=== PATIENT | female | born 1960 | race Two or more races ===

== ENCOUNTER 2024-02-18 19:57 | Inpatient (IN) | payer MEDICARE, MEDICAID, SELFPAY ==
[2024-02-18 19:58] VITALS: BMI 27.4
[2024-02-18 20:34] VITALS: BP 120/77; PULSE 86; RESP 20; TEMP 36.7; O2SAT 96
--- NOTE | 2024-02-18 20:49 | XR_ITS ---
Examination: PA lateral chest 2 views Technique: Upright PA lateral chest 2 views Exam date and time: 09/18/2023 2107 hrs. Indications: Sepsis today. Findings: Early pneumonia left base Normal heart size No pulmonary edema Intact osseous structures with moderate osteopenia Impression: Early pneumonia left base
--- NOTE | 2024-02-18 20:50 | PD.EDRME ---
Rapid Medical Screening Exam RME Arrival date/time: 02/18/24 19:57 63-year-old female presents emergency department reporting was told to return to the ER due to positive blood cultures. Patient denies any concerns at this time or complaints. Chief Complaint: General Adult/Misc Complain Time Seen by Provider: 02/18/24 20:39 Vital signs: Vital Signs Temperature 98.1 F 02/18/24 20:34 Pulse Rate 86 02/18/24 20:34 Respiratory Rate 20 02/18/24 20:34 Blood Pressure 120/77 02/18/24 20:34 Pulse Oximetry (%) 96 02/18/24 20:34 Oxygen Delivery Method Room Air 02/18/24 20:34 Vital signs reviewed by provider: Yes
[2024-02-18 21:23] LABS: Collection Type, Urine Clean Catch
[2024-02-18 21:33] LABS: Lactate (Lactic Acid) 1.1 mMol/L (0.4-2.0)
[2024-02-18 21:52] LABS: B-Type Natriuretic Peptide < 20 pg/mL (0-100)
[2024-02-18 22:04] LABS: Alanine Aminotransferase 10 U/L (10-49); Albumin, Serum 4.6 gm/dL (3.4-4.8); Albumin/Globulin Ratio 1.4 (1.2-2.2); Alkaline Phosphatase 115 U/L (46-116); Anion Gap 6 (7-16); Aspartate Amino Transferase < 10 U/L (0-34); BUN/Creatinine Ratio 25 Ratio (12-20); Bilirubin,Total 0.5 mg/dL (0.3-1.2); Blood Urea Nitrogen 33 mg/dL (9-23); Calcium 10.6 mg/dL (8.3-10.6); Calcium (Corrected) 10.6 mg/dL (8.5-10.1); Carbon Dioxide 26.6 mMol/L (20.0-31.0); Chloride 101 mMol/L (98-107); Creatinine (Component) 1.3 mg/dL (0.6-1.3); Estimated Creatinine Clearance 42.1 mL/min (>60); Globulin 3.4 gm/dL (2.3-3.5); Glucose 111 mg/dL (74-106); Lipase 92 U/L (12-53); Osmolality,Calculated 276 (275-295); Phosphorous 3.8 mg/dL (2.4-5.1); Potassium 4.1 mMol/L (3.4-5.1); Procalcitonin 1.28 ng/ml (0.0-0.49); Sodium 134 mMol/L (136-145); Troponin I < 0.002 ng/mL (0.0-0.045); eGFR 46 See Note
[2024-02-18 22:13] LABS: Basophils % (Auto) 1 % (0-2.5); Eosinophils # (Auto) 0.3 Thou/mm3 (0.0-0.5); Eosinophils % (Auto) 4 % (0-10); Hematocrit 37.7 % (36.0-46.0); Hemoglobin 12.6 g/dL (12.0-16.0); Immature Granulocytes % (Auto) 1 % (0-0); Lymphocytes # (Auto) 2.7 Thou/mm3 (1.0-4.8); Lymphocytes % (Auto) 31 % (10-50); Mean Corpuscular HGB Conc 33.4 g/dl (31.0-37.0); Mean Corpuscular Hemoglobin 29.6 pg (25.0-35.0); Mean Corpuscular Volume 89 fL (80-100); Monocytes # (Auto) 0.6 Thou/mm3 (0.0-0.8); Monocytes % (Auto) 7 % (0-12); Neutrophils # (Auto) 5.1 Thou/mm3 (1.8-7.7); Neutrophils % (Auto) 58 % (37-80); Nucleated Red Blood Cell % 0 /100 WBC (0); Platelet Count 271 Thou/mm3 (140-440); RDW Standard Deviation 40.1 fL (36.4-46.3); Red Blood Count 4.26 Miln/mm3 (4.00-5.20); White Blood Count 8.8 Thou/mm3 (3.6-11.0)
[2024-02-18 22:16] LABS: Bilirubin,Urine Negative (Negative); Blood,Urine 2+ (Negative); Clarity,Urine Clear (Clear/Hazy); Color,Urine Lt-Yellow (Lt Yel-Yel); Glucose, Urine Negative (Negative); Ketones,Urine Negative (Negative); Leukocyte Esterase,Urine Positive (Negative); Nitrite,Urine Negative (Negative); PH,Urine 5.5 (5.0-7.0); Protein,Urine Negative (Neg - Trace); RBC,Urine 12 /hpf (0-3); Specific Gravity,Urine 1.017 (1.001-1.035); Squamous Epithelial Cell,Urine < 1 /hpf (0-5); Urobilinogen,Urine Negative mg/dL (0.0-1.0); WBC,Urine 12 /hpf (0-5)
[2024-02-18 22:20] LABS: Prothrombin Time 10.9 Seconds (9.0-12.2)
--- NOTE | 2024-02-18 22:40 | EDNOTE_ITS ---
<Statement entered by Gloria Laurent MD - 02/19/24 19:40> As co-signing physician, I was present and available for consult prn. I concur with the plan and care as documented by the midlevel provider. ED General RME/HPI General Chief complaint: General Adult/Misc Complain Stated complaint: POS BLOOD CULTURE GRAM NEGATIVE RODS Time Seen by Provider: 02/18/24 20:39 Arrival date/time: 02/18/24 19:57 RME / HPI RME / HPI narrative: 63-year-old female patient with significant history of hypertension diabetes mellitus, was advised to return to emergency room for positive blood culture gram-negative negative rods that was done 2 days ago. Patient came here 2 days ago and was diagnosed with UTI during that time patient was given ceftriaxone IV, and was sent home on Keflex. Currently patient is denying any concerns or complaints at this time. No fever no vomiting. Related Data Home Medications ?Medication ?Instructions ?Recorded ?Confirmed Metformin Hcl 500 mg PO ##0 11/16/08 lisinopril 10 mg tablet 10 mg PO ##0 11/16/08 Previous Rx's ?Medication ?Instructions ?Recorded hydrocodone 5 mg-acetaminophen 325 1 tab PO BID PRN pain #14 tabs 11/06/22 mg tablet naproxen 500 mg tablet 500 mg PO BID PRN pain #30 tabs 11/06/22 cephalexin 500 mg capsule 1,000 mg (2 x 500 mg) PO BID 7 02/16/24 days #28 caps Allergies Allergy/AdvReac Type Severity Reaction Status Date / Time No Known Allergies Allergy Mild Uncoded 02/11/09 14:32 Review of Systems Review of Systems Narrative Review of Systems: Review of system reviewed and within normal limits except mentioned in HPI ED Exam Narrative Physical exam: VITAL SIGNS: Reviewed. GENERAL APPEARANCE: Alert and interactive, follows commands, no acute distress, HEAD AND FACE: Non-traumatic. ENT: PERRL, pink conjunctivitis, eyelid no trauma, Mucous membrane moist. NECK: Supple, nontender, no nuchal rigidity. CHEST: No tenderness, no crepitus, no paradoxical movement, no retractions. LUNGS: Clear, well ventilated, symmetric, no rales, no wheezing, no ronchi, no stridor, good breath sounds bilaterally. HEART: Regular rate, regular rhythm, no murmur, no gallops. ABDOMEN: Soft, positive bowel sounds, nondistended, no guarding, nontender, no rebound, no masses, RECTAL: Deferred. GENITAL: Deferred. NEUROLOGICAL: Gross motor function intact sensory function intact, Appropriate for age. MUSCULOSKELETAL: low back nontender, full range of motion. EXTREMITIES: Nontender, full range of motion. SKIN: Color pink, dry, no rash, no lacerations, no abrasions, no contusions. LYMPHATICS: Deferred. Course Quality Measures none Orders Category Date Time Status COVID-19 Screening Questionnaire NOW Care 02/18/24 22:44 Active Decision to Admit X1 Care 02/18/24 22:44 Active XR chest 2V Stat Exams 02/18/24 20:49 Completed B-Type Natriuretic Peptide Stat Lab 02/18/24 21:25 Completed Blood Culture (Lab) Stat Lab 02/18/24 21:30 Received CBC Stat Lab 02/18/24 21:25 Completed Comprehensive Metabolic Panel Stat Lab 02/18/24 21:25 Completed Lactate (Lactic Acid) Stat Lab 02/18/24 21:25 Completed Lipase Stat Lab 02/18/24 21:25 Completed Magnesium Stat Lab 02/18/24 21:25 Completed Partial Thromboplastin Time Stat Lab 02/18/24 21:25 Completed Phosphorous Stat Lab 02/18/24 21:25 Completed Procalcitonin Stat Lab 02/18/24 21:25 Completed Prothrombin Time with INR Stat Lab 02/18/24 21:25 Completed Troponin I Stat Lab 02/18/24 21:25 Completed Urinalysis Stat Lab 02/18/24 21:14 Completed Urine Culture Stat Lab 02/18/24 21:14 Received Piper/Tazo 3.375 gm [Zosyn] Med 02/18/24 22:43 Active 3.375 gm in 50 ml IV X1 Vital Signs Vital signs: Vital Signs Temperature 98.1 F 02/18/24 20:34 Pulse Rate 86 02/18/24 20:34 Respiratory Rate 20 02/18/24 20:34 Blood Pressure 120/77 02/18/24 20:34 Pulse Oximetry (%) 96 02/18/24 20:34 Oxygen Delivery Method Room Air 02/18/24 20:34 [facility] Patient data External records reviewed:: None Clinical information provided by:: none Social determinants that could affect healthcare access:: none Patient has the following chronic illnesses:: Diabetes mellitus hypertension How is presenting disease/condition affected by chronic disease/condition?: e xacerbated by Evaluation data The following diagnostics were reviewed and interpreted by me:: radiology exam(s) Lab and/or radiology exams considered but not ordered:: None Interpretation Summary: Patient's workup today all came back unremarkable. Except for UTI UTI in the urinalysis. Chest x-ray showed early pneumonia. Medications Medications considered but not ordered:: None Medication administrations:: Medication Administration History Piperacillin/Tazobactam/Dextrose (Zosyn) 3.375 gm in 50 mls @ 100 mls/hr IV X1 ONE Stop: 02/18/24 23:12 Zosyn IV Consultations Consultation(s) initiated? (list below): No Diagnosis Differential Diagnosis ED Complaint MDM: Positive blood culture, UTI, pneumonia Most likely diagnosis given after review of the tests above:: Gram-negative rods in blood culture, UTI pneumonia Admission Indicated Admission indicated?: indicated Explain why admission is indicated or not indicated:: Patient is to be admitted for further management. Admission Request Was there a request for admission?: Yes Admission Attestation Admission request attestation: Discussed case with [Velazquez] from Hospitalist service regarding admission. Discussed patients ED course, exam findings, labs, and radiology results. The Hospitalist [agrees,] to accept the patient for admission. Disposition Plan Disposition Plan: Admit Medical Decision Making Differential Diagnosis Differential Diagnosis: Positive blood culture, UTI, pneumonia Lab Data 02/18/24 21:25 02/18/24 21:25 Labs: Lab Results 02/18/24 02/18/24 Range/Units 21:14 21:25 WBC 8.8 (3.6-11.0) Thou/mm3 RBC 4.26 (4.00-5.20) Miln/mm3 Hgb 12.6 (12.0-16.0) g/dL Hct 37.7 (36.0-46.0) % MCV 89 (80-100) fL MCH 29.6 (25.0-35.0) pg MCHC 33.4 (31.0-37.0) g/dl RDW Std Deviation 40.1 (36.4-46.3) fL Plt Count 271 D (140-440) Thou/mm3 Neut % (Auto) 58 (37-80) % Lymph % (Auto) 31 (10-50) % [place] % (Auto) 7 (0-12) % Eos % (Auto) 4 (0-10) % Baso % (Auto) 1 (0-2.5) % Neut # (Auto) 5.1 (1.8-7.7) Thou/mm3 Lymph # (Auto) 2.7 (1.0-4.8) Thou/mm3 [place] # (Auto) 0.6 (0.0-0.8) Thou/mm3 Eos # (Auto) 0.3 (0.0-0.5) Thou/mm3 Baso # (Auto) 0.0 (0.0-0.2) Thou/mm3 Immature Gran # (Auto) 0.10 H (0.00-0.00) Thou/mm3 Absolute Nucleated RBC 0.00 (0.00-0.00) Thou/mm3 Immature Gran % 1 H (0-0) % Nucleated RBC % 0 (0) /100 WBC PT 10.9 (9.0-12.2) Seconds INR 1.0 (0.9-1.3) APTT 32.0 (22.0-36.0) Seconds Sodium 134 L (136-145) mMol/L Potassium 4.1 D (3.4-5.1) mMol/L Chloride 101 (98-107) mMol/L Carbon Dioxide 26.6 (20.0-31.0) mMol/L Anion Gap 6 L (7-16) BUN 33 H (9-23) mg/dL Creatinine 1.3 (0.6-1.3) mg/dL Estim Creat Clear Calc 42.1 L (>60) mL/min eGFR 46 L (60 - ) See Note BUN/Creatinine Ratio 25 H (12-20) Ratio Glucose 111 H D (74-106) mg/dL Calculated Osmolality 276 (275-295) Lactic Acid 1.1 (0.4-2.0) mMol/L Calcium 10.6 (8.3-10.6) mg/dL Corrected Calcium 10.6 H (8.5-10.1) mg/dL Phosphorus 3.8 (2.4-5.1) mg/dL Magnesium 2.0 (1.6-2.6) mg/dL Total Bilirubin 0.5 (0.3-1.2) mg/dL AST < 10 (0-34) U/L ALT 10 (10-49) U/L Alkaline Phosphatase 115 (46-116) U/L Troponin I < 0.002 (0.0-0.045) ng/mL B-Natriuretic Peptide < 20 (0-100) pg/mL Total Protein 8.0 (5.7-8.2) gm/dL Albumin 4.6 (3.4-4.8) gm/dL Globulin 3.4 (2.3-3.5) gm/dL Albumin/Globulin Ratio 1.4 (1.2-2.2) Lipase 92 H D (12-53) U/L Procalcitonin 1.28 H (0.0-0.49) ng/ml Ur Collection Type Clean Catch Urine Color Lt-Yellow (Lt Yel-Yel) Urine Clarity Clear (Clear/Hazy) Urine pH 5.5 (5.0-7.0) Ur Specific [place] 1.017 (1.001-1.035) Urine Protein Negative (Neg - Trace) Urine Glucose (UA) Negative (Negative) Urine Ketones Negative (Negative) Urine Blood 2+ A (Negative) Urine Nitrite Negative (Negative) Urine Bilirubin Negative (Negative) Urine Urobilinogen (Auto) Negative (0.0-1.0) mg/dL Ur Leukocyte Esterase Positive (Negative) Urine RBC 12 H (0-3) /hpf Urine WBC 12 H (0-5) /hpf Ur Squamous Epith Cells < 1 (0-5) /hpf Urine Bacteria None (None) Discharge Plan Plan Patient Disposition: Admit Acute Care w/in Hospital Disposition Comment: Stable Prescriptions/Referrals Prescriptions/Med Rec: No Action lisinopril 10 MG tablet 10 mg PO Qty: 0 Metformin Hcl 500 MG tablet 500 mg PO Qty: 0 naproxen 500 mg tablet 500 mg PO BID PRN (Reason: pain) Qty: 30 0RF hydrocodone-acetaminophen 5-325 mg tablet 1 tab PO BID MDD 2 PRN (Reason: pain) Qty: 14 0RF cephalexin 500 mg capsule 1,000 mg PO BID 7 Days Qty: 28 0RF Referrals: Marquez Higgins MD [Primary Care Provider] - In 1 week Problem List Clinical Impression: UTI (urinary tract infection), Positive blood cultures Patient/Caregiver Discharge Instructions Print Language: Welsh Stand Alone Forms: [employer] Award Info., Patient Portal Info Letter
--- NOTE | 2024-02-18 22:57 | ESHP_ITS ---
Documentation for date of: 02/18/24 HPI - Hospitalist History of Present Illness History of Present Illness: Positive blood culture History of present illness: This is a 63-year-old female with a past medical history of hypertension and diabetes mellitus who presented to the emergency department following a notification of positive blood cultures for gram-negative rods. The patient was evaluated in the ED two days ago (02/15) for complaints of abdominal pain and systemic symptoms including chills and shivering, which began on 02/09. At that visit, she was diagnosed with a urinary tract infection, treated with IV ceftriaxone, and discharged on oral Keflex. The patient denies any current complaints, including fever, vomiting, or abdominal pain. She reports a history of unintended weight loss despite preserved appetite, estimating a significant loss of approximately 60 pounds in recent months. Her family reported that she continues to feel weak. She has a notable family history of cancers but denies knowledge of specific types in her immediate relatives. In the ED, her vital signs were stable (Temp 98.1?F, HR 86 bpm, RR 20 breaths/min, BP 120/77 mmHg). Lab work revealed a WBC of 8.8, hemoglobin of 12.6, platelets of 271, sodium of 134, BUN of 33, glucose of 111, and a procalcitonin level of 1.28 ng/mL. Imaging findings included a chest X-ray showing early left lower lobe pneumonia and a CT scan on 02/15 revealing a 3.6 x 4.2 cm pancreatic head mass concerning for pancreatic carcinoma, as well as right perinephric stranding suggestive of a urinary tract infection The patient was admitted for further workup and management. Past Medical History: * Hypertension * Diabetes mellitus Past Surgical History: * section * Hysterectomy Review of Systems Review of Systems Narrative Review of Systems: A 14 point review of systems was assessed and negative except for that per HPI Past Medical History Past Medical History CARDIAC: Negative Congestive Heart Failure RESPIRATORY: Negative Chronic Obstructive Pulmonary Disease (COPD) GENITOURINARY: Negative Renal Disease ENDOCRINE: Positive Diabetes Mellitus Type 2; Negative Diabetes Mellitus Type 1 Social History SMOKING STATUS: Never smoker Meds Home Medications and Allergies Home Medications ?Medication ?Instructions ?Recorded ?Confirmed ?Type Metformin Hcl 500 mg PO ##0 11/16/08 History lisinopril 10 mg tablet 10 mg PO ##0 11/16/08 History Allergies Allergy/AdvReac Type Severity Reaction Status Date / Time No Known Allergies Allergy Mild Uncoded 02/11/09 14:32 Exam Vital Signs Temp Pulse Resp BP Pulse Ox O2 Del Method 98.1 F 86 20 120/77 96 Room Air 02/18/24 20:34 02/18/24 20:34 02/18/24 20:34 02/18/24 20:34 02/18/24 20:34 02/18/24 20:34 Narrative Constitutional: Female, in no apparent distress. Eyes: Extraocular movements intact. No ptosis. PERRL. Neck: Supple, trachea midline. No thyromegaly. Lungs: Clear and good breath sounds equally. No wheezing. No rhonchi. CV: S1, S2. Regular rate and rhythm. GI: Soft, nontender. No HSM. Musculoskeletal: No cyanosis, clubbing or edema. Neuro: No focal deficit. No sensory deficit. Alert and oriented x3. Psychiatric: No signs of depression and is nonfocal. Skin: Warm and dry. No acute lesions. Results - Hospitalist Labs Diagrams: 02/18/24 21:25 02/18/24 21:25 Labs: Short CBC 02/18/24 Range/Units 21:25 WBC 8.8 (3.6-11.0) Thou/mm3 Hgb 12.6 (12.0-16.0) g/dL Hct 37.7 (36.0-46.0) % Plt Count 271 D (140-440) Thou/mm3 BMP 02/18/24 21:25 Sodium 134 L Potassium 4.1 D Chloride 101 Carbon Dioxide 26.6 BUN 33 H Creatinine 1.3 Glucose 111 H D Calcium 10.6 Cardiac Enzymes 02/18/24 Range/Units 21:25 Troponin I < 0.002 (0.0-0.045) ng/mL Liver Function 02/18/24 Range/Units 21:25 Total Bilirubin 0.5 (0.3-1.2) mg/dL AST < 10 (0-34) U/L ALT 10 (10-49) U/L Alkaline Phosphatase 115 (46-116) U/L Albumin 4.6 (3.4-4.8) gm/dL Urine 02/18/24 Range/Units 21:14 Urine Color Lt-Yellow (Lt Yel-Yel) Urine Clarity Clear (Clear/Hazy) Urine pH 5.5 (5.0-7.0) Ur Specific [place] 1.017 (1.001-1.035) Urine Protein Negative (Neg - Trace) Urine Glucose (UA) Negative (Negative) Assessment & Plan -Hospitalist Patient Synopsis #Positive Blood Culture #Urinary Tract Infection #Pneumonia - Start broad-spectrum IV antibiotics targeting gram-negative organisms while awaiting final culture and sensitivity results - Repeat blood cultures to assess for clearance - Continue monitoring for signs of systemic infection or sepsis #Pancreatic Mass - Order MRI of the abdomen for further characterization of the pancreatic lesion - Assess for tumor markers such as CA 199/CEA/CA 125 Diabetes - ISS - Optimize glycemic control during hospitalization, avoiding hypoglycemia. Hypertension - Continue home meds Unintended Weight Loss - Evaluate for malignancy, malabsorption, or other systemic causes - Consider a nutrition consult for caloric supplementation if intake is inadequate DVT prophylaxis: Lovenox Quality Measures Quality Measures none Advance care planning discussed with:: patient
[2024-02-18] MEDS: SODIUM CHLORIDE 0.9% 1000 ML 1,000 ML 100 ML IV (23:19)
[2024-02-18] MEDS: PIPER/TAZO 3.375 GM 3.375 GM/50 ML BAG IV (23:20)
[2024-02-18 23:30] VITALS: BP 119/79; PULSE 72; RESP 13; TEMP 36.9; O2SAT 99
[2024-02-19] VITALS (7 sets, daily range): BP systolic 112–124; BP diastolic 61–81; PULSE 61–77; RESP 17–18; TEMP 36.1–36.9; O2SAT 94–99; BMI 26.9
--- NOTE | 2024-02-19 | XR_ITS ---
Examination: MRI abdomen with intravenous contrast. MRI abdomen without intravenous contrast. Date and time of exam: February 19, 2024 at 1710 hrs. Indications: Abdominal pain this week, CT abdomen pelvis February 16, 2024 pancreatic head mass 3.6 x 4.2 cm Technique: Multiple axial, sagittal and coronal sections of the abdomen obtained. Transverse images, TR 6020, TE 107. T1 weighted transverse images, TR 582, TE 9.5. T2-weighted sagittal images, TR 4000, TE 105. T2-weighted sagittal images, TR 4000, TE 5. Coronal images, TR 4210, TE 107. Axial and coronal images are obtained post 18 cc intravenous injection, gadolinium. Findings: No focal liver lesions No gallstones No enlargement common hepatic or common bile duct Large complex septated cystic mass pancreatic head, at least 4 x 4.2 cm Postcontrast images demonstrate enhancement of this date and this mass No hydronephrosis Aorta normal size Lower pole 4.5 cm left renal cyst Impression: Complex large septated cystic mass pancreatic head with septal enhancement, differential would include cystic neoplasm of the pancreas
--- NOTE | 2024-02-19 00:02 | PC.NURSE ---
REPORT GIVEN TO PAMELA JAQUEZ AT [facility].
[2024-02-19] MEDS: PIPER/TAZO 3.375 GM 50 ML IV (05:16)
[2024-02-19 06:46] LABS: Basophils # (Auto) 0.1 Thou/mm3 (0.0-0.2); Basophils % (Auto) 1 % (0-2.5); Eosinophils # (Auto) 0.3 Thou/mm3 (0.0-0.5); Eosinophils % (Auto) 4 % (0-10); Hematocrit 33.5 % (36.0-46.0); Hemoglobin 11.3 g/dL (12.0-16.0); Immature Granulocytes % (Auto) 2 % (0-0); Immature Granulocytes Auto 0.17 Thou/mm3 (0.00-0.00); Lymphocytes # (Auto) 2.5 Thou/mm3 (1.0-4.8); Lymphocytes % (Auto) 34 % (10-50); Mean Corpuscular HGB Conc 33.7 g/dl (31.0-37.0); Mean Corpuscular Hemoglobin 29.7 pg (25.0-35.0); Mean Corpuscular Volume 88 fL (80-100); Monocytes # (Auto) 0.4 Thou/mm3 (0.0-0.8); Monocytes % (Auto) 5 % (0-12); Neutrophils # (Auto) 3.8 Thou/mm3 (1.8-7.7); Neutrophils % (Auto) 53 % (37-80); Nucleated Red Blood Cell % 0 /100 WBC (0); Platelet Count 223 Thou/mm3 (140-440); RDW Standard Deviation 39.3 fL (36.4-46.3); Red Blood Count 3.81 Miln/mm3 (4.00-5.20); White Blood Count 7.2 Thou/mm3 (3.6-11.0)
[2024-02-19 07:12] LABS: Anion Gap 1 (7-16); BUN/Creatinine Ratio 25 Ratio (12-20); Blood Urea Nitrogen 30 mg/dL (9-23); Carbon Dioxide 27.7 mMol/L (20.0-31.0); Chloride 106 mMol/L (98-107); Creatinine (Component) 1.2 mg/dL (0.6-1.3); Estimated Creatinine Clearance 45.2 mL/min (>60); Glucose 99 mg/dL (74-106); Osmolality,Calculated 276 (275-295); Potassium 3.7 mMol/L (3.4-5.1); Sodium 135 mMol/L (136-145); eGFR 50 See Note
--- NOTE | 2024-02-19 09:57 | PD.RESPRO ---
Documentation for date of: 02/19/24 Subjective Subjective Interval history: Patient seen and examined at bedside. No acute overnight events. Vitals, labs reviewed. Overall patient has no acute complaints, although she does feel like she has a headache related to poor sleep/positioning. She denies nausea, vomiting, abdominal pain or any respiratory distress. Repeat cultures are pending. Changed antibiotics to rocephin based on previous positive blood cultures (pansensitive E.coli). MRI ordered for pancreatic mass along with tumor markers. Will consult oncology. Exam Vital Signs Temp Pulse Resp BP Pulse Ox O2 Del Method 97.3 F 65 17 114/71 95 Room Air 02/19/24 08:00 02/19/24 08:00 02/19/24 08:00 02/19/24 08:00 02/19/24 08:00 02/19/24 08:00 Narrative Exam Gen: AAOx3, appears ill, pleasant to speak with HEENT: NCAT, PERRLA, EOMI, MMM, no LAD noted CVS: normal S1, S2. RRR. No MRG Resp: CTA B/L. No rhonchi, rales, crackles or wheezing Abd: soft, non-tender, non-distended. BS+ in all 4 quadrants MSK: Good ROM in BUE & BLE. No edema or rash. Neuro: CN II-XII grossly intact. No focal deficits appreciated. Objective Labs 02/21/24 04:38 02/21/24 04:38 Labs: Laboratory Results - last 24 hr 02/18/24 02/18/24 02/19/24 21:14 21:25 05:21 WBC 8.8 7.2 RBC 4.26 3.81 L Hgb 12.6 11.3 L Hct 37.7 33.5 L MCV 89 88 MCH 29.6 29.7 MCHC 33.4 33.7 RDW Std Deviation 40.1 39.3 Plt Count 271 D 223 D Neut % (Auto) 58 53 Lymph % (Auto) 31 34 [place] % (Auto) 7 5 Eos % (Auto) 4 4 Baso % (Auto) 1 1 Neut # (Auto) 5.1 3.8 Lymph # (Auto) 2.7 2.5 [place] # (Auto) 0.6 0.4 Eos # (Auto) 0.3 0.3 Baso # (Auto) 0.0 0.1 Immature Gran # (Auto) 0.10 H 0.17 H Absolute Nucleated RBC 0.00 0.00 Immature Gran % 1 H 2 H Nucleated RBC % 0 0 PT 10.9 INR 1.0 APTT 32.0 Sodium 134 L 135 L Potassium 4.1 D 3.7 Chloride 101 106 Carbon Dioxide 26.6 27.7 Anion Gap 6 L 1 L BUN 33 H 30 H Creatinine 1.3 1.2 Estim Creat Clear Calc 42.1 L 45.2 L eGFR 46 L 50 L BUN/Creatinine Ratio 25 H 25 H Glucose 111 H D 99 Calculated Osmolality 276 276 Lactic Acid 1.1 Calcium 10.6 10.0 Corrected Calcium 10.6 H Phosphorus 3.8 Magnesium 2.0 Total Bilirubin 0.5 AST < 10 ALT 10 Alkaline Phosphatase 115 Troponin I < 0.002 B-Natriuretic Peptide < 20 Total Protein 8.0 Albumin 4.6 Globulin 3.4 Albumin/Globulin Ratio 1.4 Lipase 92 H D Procalcitonin 1.28 H Ur Collection Type Clean Catch Urine Color Lt-Yellow Urine Clarity Clear Urine pH 5.5 Ur Specific [place] 1.017 Urine Protein Negative Urine Glucose (UA) Negative Urine Ketones Negative Urine Blood 2+ A Urine Nitrite Negative Urine Bilirubin Negative Urine Urobilinogen (Auto) Negative Ur Leukocyte Esterase Positive Urine RBC 12 H Urine WBC 12 H Ur Squamous Epith Cells < 1 Urine Bacteria None Quality Measures Quality Measures VTE prophylaxis Advance care planning discussed with:: patient Assessment & Plan Assessment Current Active Medications: Generic Name Dose Route Start Last Admin Trade Name Kitq PRN Reason Stop Dose Admin Acetaminophen 650 mg 02/18/24 22:52 Acetaminophen 325 Mg Tablet PO 03/19/24 22:51 Q6H PRN Fever >101.5 Atorvastatin Calcium 20 mg 02/19/24 21:00 Atorvastatin Calcium 20 Mg Tablet PO 03/20/24 20:59 HS JERE Dextrose 25 ml 02/18/24 22:55 Dextrose 50%-Water Inj 50 Ml Syringe IV 03/19/24 22:54 Q15MIN PRN BG 50-70 responsive npo pt Dextrose 50 ml 02/18/24 22:55 Dextrose 50%-Water Inj 50 Ml Syringe IV 03/19/24 22:54 Q15MIN PRN BG <50 OR BG <70 & pt unresponsive Enoxaparin Sodium 40 mg 02/19/24 09:00 Enoxaparin Sod Inj 40 Mg/0.4 Ml Syringe SC 03/04/24 08:59 QDAY JERE Glucagon 1 mg 02/18/24 22:55 Glucagon Inj 1 Mg Vial IM Q15MIN PRN BG <70, and no IV access Ceftriaxone Sodium 2 gm/ 50 mls @ 100 mls/hr 02/19/24 09:30 Sodium Chloride IV 02/26/24 09:29 QDAY JERE Insulin Human Regular 0 unit 02/19/24 07:30 02/19/24 08:14 Insulin Hum Regular 1 Unit/0.01 Ml (Per Unit) SC 03/20/24 07:29 Not Given ACHS [facility] Protocol Lisinopril 20 mg 02/19/24 09:00 Lisinopril 20 Mg Tablet PO 03/20/24 08:59 QDAY JERE Plan Patient is a 63-year-old female with HTN, T2DM after her blood cultures from ED visit on 02/15 returned positive for GNR, specifically pansensitive E. coli. At that time she was diagnosed with UTI. Incidentally, CT scan revealed a 3.6 x 4.2 cm pancreatic head mass for which an MRI was ordered. Patient was admitted for further workup and management of E. coli bacteremia and pancreatic head mass. #E. coli bacteremia #UTI #Community-acquired pneumonia Blood cultures were positive for E. coli, pansensitive, therefore antibiotics changed to Rocephin Previous urine culture was negative Repeat blood & urine cultures pending CXR: early left base pneumonia No signs of sepsis at this time Continue Rocephin 2g/day #Pancreatic mass #Unintentional weight loss As seen on CT MRI ordered Tumor markers (CA 19?9, CEA, CA125) Oncology consulted, appreciate recommendations #T2DM Patient on SSI with hypoglycemia protocol in place FBG 99 Follow-up A1c #HTN Continue home lisinopril Dispo: E. coli bacteremia, pending final repeat cultures; pancreatic mass concerning for malignancy, pending MRI DVT PPx: Lovenox GI PPx: None Diet: Cardiac CODE STATUS: Full code Patient seen and care discussed with my attending Dr. Mack. Familia Chase MD PGY-3 Attending Provider Attestation/Addendum I reviewed labs, imaging, EKG, home medications and prior available records. Face to face evaluation was performed by me. I have personally examined the patient and discussed assessment and plan with the IM team. I reviewed the resident note and agree with the plan with exceptions as below. See my addendum in a separate note for the same date.
[2024-02-19] MEDS: cefTRIAXone 2 GM in SODIUM CHLORIDE 0.9% (P) 50 ML IV (10:22)
[2024-02-19] MEDS: Lisinopril 20 MG TABLET PO (10:23)
[2024-02-19] MEDS: ENOXAPARIN SOD INJ 40 MG/0.4 ML SYRINGE SC (10:23)
--- NOTE | 2024-02-19 11:37 | PD.ADDPROG ---
Addendum Progress Note Addendum Date of report being addended: 02/19/24 Narrative: Attending's attestation: I reviewed labs, imaging, EKG, home medications and prior available records. Face to face evaluation was performed by me. I have personally examined the patient and discussed assessment and plan with the IM team. I reviewed the resident note and agree with the plan with exceptions as below. Gram-negative bacteremia Left lower lobe pneumonia Sepsis secondary to pneumonia Pancreatic mass Changed antibiotics to IV ceftriaxone Follow-up repeat blood cultures Follow-up abdominal MRI. Tumor markers sent. Consulted oncology Dr. Christensen.
--- NOTE | 2024-02-19 15:00 | PC.SS ---
Lilly Ernst is 63 year old female admitted to [facility] for Bacteremia. SS conducted bedside contact with the patient to complete initial assessment and to discuss discharge planning. SW used all precautionary measures to complete initial. Role and reason for the contact was explained to Lilly. Pt is alert and oriented times 4. Pt gave verbal authorization for Yadiel Ernst, spouse, to be present while assessment was conducted. SW utilized hourly sign language interpreter [employer]. Lilly confirmed demographic information. Pt resides at home with spouse. Patient Yadiel Ernst, spouse, as her surrogate decision maker. Pt states prior to hospitalization she is independent and does not need assistance with ADLs. Pt does not use O2 and has walker that she will use from time to time. Pt confirmed no current history of mental health or substance abuse. Pts PCP is Marquez Higgins last seen Wednesday. Advance life directive discussed pt was receptive and paperwork provided. Pharmacy of choice is [facility] [address]. Discharge options discussed and the pt return home. HH was discussed and if needed no preference on provider. Family will provide transportation upon DC. No further intervention required at this time, social security benefits interviewer would be available to address any further concerns. DC Plan: Home Address: Confirmed on face sheet Contact: Yadiel Ernst, spouse, PCP: Marquez Higgins
[2024-02-19] MEDS: ATORVASTATIN CALCIUM 20 MG TABLET PO (20:29)
[2024-02-20] VITALS (7 sets, daily range): BP systolic 112–133; BP diastolic 69–86; PULSE 63–94; RESP 16–18; TEMP 36.2–36.6; O2SAT 91–96
[2024-02-20 04:58] LABS: Basophils % (Auto) 1 % (0-2.5); Eosinophils # (Auto) 0.3 Thou/mm3 (0.0-0.5); Eosinophils % (Auto) 5 % (0-10); Hematocrit 34.8 % (36.0-46.0); Hemoglobin 11.7 g/dL (12.0-16.0); Immature Granulocytes % (Auto) 1 % (0-0); Immature Granulocytes Auto 0.09 Thou/mm3 (0.00-0.00); Lymphocytes # (Auto) 2.5 Thou/mm3 (1.0-4.8); Lymphocytes % (Auto) 37 % (10-50); Mean Corpuscular HGB Conc 33.6 g/dl (31.0-37.0); Mean Corpuscular Volume 86 fL (80-100); Monocytes # (Auto) 0.5 Thou/mm3 (0.0-0.8); Monocytes % (Auto) 7 % (0-12); Neutrophils # (Auto) 3.3 Thou/mm3 (1.8-7.7); Neutrophils % (Auto) 49 % (37-80); Nucleated Red Blood Cell % 0 /100 WBC (0); Platelet Count 269 Thou/mm3 (140-440); RDW Standard Deviation 38.2 fL (36.4-46.3); Red Blood Count 4.03 Miln/mm3 (4.00-5.20); White Blood Count 6.7 Thou/mm3 (3.6-11.0)
[2024-02-20 05:18] LABS: Anion Gap 8 (7-16); BUN/Creatinine Ratio 20 Ratio (12-20); Blood Urea Nitrogen 20 mg/dL (9-23); Calcium 10.5 mg/dL (8.3-10.6); Carbon Dioxide 26.3 mMol/L (20.0-31.0); Chloride 104 mMol/L (98-107); Estimated Creatinine Clearance 54.2 mL/min (>60); Glucose 116 mg/dL (74-106); Osmolality,Calculated 279 (275-295); Potassium 3.9 mMol/L (3.4-5.1); Sodium 138 mMol/L (136-145); eGFR > 60 See Note
[2024-02-20 05:21] LABS: Glucose Estimated Average 134 mg/dL (80-131); Hemoglobin A1C 6.3 % Hgb (4.8-6.0)
[2024-02-20] MEDS: cefTRIAXone 2 GM in SODIUM CHLORIDE 0.9% (P) 50 ML IV (08:34)
[2024-02-20] MEDS: ENOXAPARIN SOD INJ 40 MG/0.4 ML SYRINGE SC (08:34)
[2024-02-20] MEDS: INSULIN HUM REGULAR 1 UNIT/0.01 ML (PER UNIT) SC (08:34)
[2024-02-20] MEDS: Lisinopril 20 MG TABLET PO (08:34)
--- NOTE | 2024-02-20 15:04 | ESPR_ITS ---
Documentation for date of: 02/20/24 Subjective Subjective Interval history: -- Tongan-speaking, medical translation service was used -- Patient was seen and examined at bedside this AM. No acute events overnight. Patient tolerating diet, adequate urine output and mentation is at baseline. Currently on Rocephin 2 g daily for GNR bacteremia, will de-escalate to Levaquin 500 mg daily for 7 more days, to complete 10-day course. Pending oncology Dr. Christensen's recommendations at this time regarding the pancreatic head cystic lesion confirmed on CT abdomen as well as abdomen MRI. Family present at bedside, patient and family counseled extensively on plan, in agreement to stay for further evaluation oncology. Exam Vital Signs Temp Pulse Resp BP Pulse Ox O2 Del Method 97.3 F 70 17 120/77 94 L Room Air 02/20/24 12:00 02/20/24 12:00 02/20/24 12:00 02/20/24 12:00 02/20/24 12:00 02/20/24 12:00 Narrative Exam Constitutional Alert, oriented x4 and comfortable HEENT Vision grossly intact. Patent nares. Trachea midline. Respiratory Chest normal on inspection and clear to auscultation bilaterally. Cardiovascular S1 and S2 audible, RRR. No murmurs or carotid bruit. No gross JVD. Abdominal Soft, mildly tender to deep palpation in upper quadrants. BS + Genitourinary No bladder tenderness, no flank pain. Normal to palpation. Musculoskeletal Extremities tone within normal limits. No LE edema. Neurological CN II - XII grossly intact. Extremity motor and sensation grossly intact. Skin Warm, dry and intact. No apparent lesions. Psychiatric Patient has a good affect, is cooperative. Objective Labs 02/20/24 04:40 02/20/24 04:40 Labs: Laboratory Results - last 24 hr 02/20/24 04:40 WBC 6.7 RBC 4.03 Hgb 11.7 L Hct 34.8 L MCV 86 MCH 29.0 MCHC 33.6 RDW Std Deviation 38.2 Plt Count 269 D Neut % (Auto) 49 Lymph % (Auto) 37 [place] % (Auto) 7 Eos % (Auto) 5 Baso % (Auto) 1 Neut # (Auto) 3.3 Lymph # (Auto) 2.5 [place] # (Auto) 0.5 Eos # (Auto) 0.3 Baso # (Auto) 0.0 Immature Gran # (Auto) 0.09 H Absolute Nucleated RBC 0.00 Immature Gran % 1 H Nucleated RBC % 0 Sodium 138 Potassium 3.9 Chloride 104 Carbon Dioxide 26.3 Anion Gap 8 BUN 20 Creatinine 1.0 Estim Creat Clear Calc 54.2 L eGFR > 60 BUN/Creatinine Ratio [address] Glu mg/dL 134 H Hemoglobin A1c 6.3 H Calculated Osmolality 279 Calcium 10.5 Quality Measures Quality Measures VTE prophylaxis Advance care planning discussed with:: patient, spouse and child Assessment & Plan Assessment Current Active Medications: Generic Name Dose Route Start Last Admin Trade Name Freq PRN Reason Stop Dose Admin Acetaminophen 650 mg 02/18/24 22:52 Acetaminophen 325 Mg Tablet PO 03/19/24 22:51 Q6H PRN Fever >101.5 Atorvastatin Calcium 20 mg 02/19/24 21:00 02/19/24 20:29 Atorvastatin Calcium 20 Mg Tablet PO 03/20/24 20:59 20 mg HS JERE Administration Dextrose 50 ml 02/18/24 22:55 Dextrose 50%-Water Inj 50 Ml Syringe IV 03/19/24 22:54 Q15MIN PRN BG <50 OR BG <70 & pt unresponsive Enoxaparin Sodium 40 mg 02/19/24 09:00 02/20/24 08:34 Enoxaparin Sod Inj 40 Mg/0.4 Ml Syringe SC 03/04/24 08:59 40 mg QDAY JERE Administration Glucagon 1 mg 02/18/24 22:55 Glucagon Inj 1 Mg Vial IM Q15MIN PRN BG <70, and no IV access Ceftriaxone Sodium 2 gm/ 50 mls @ 100 mls/hr 02/19/24 09:30 02/20/24 08:34 Sodium Chloride IV 02/26/24 09:29 100 mls/hr QDAY JERE Administration Insulin Human Lispro 0 unit 02/20/24 11:30 02/20/24 12:22 Insulin Lispro (Admelog) 1 Unit/0.01 Ml Unit SC 03/21/24 11:29 Not Given [facility] Protocol Lisinopril 10 mg 02/21/24 09:00 Lisinopril 2.5 Mg Tablet PO 03/22/24 08:59 QDAY JERE Plan Ms Ernst is a 63-year-old female with HTN, T2DM after her blood cultures from ED visit on 02/15 returned positive for GNR, specifically pansensitive E. coli. At that time she was diagnosed with UTI. Incidentally, CT scan revealed a 3.6 x 4.2 cm pancreatic head mass for which an MRI was ordered. Patient was admitted for further workup and management of E. coli bacteremia and pancreatic head mass. 1. GNR bacteremia 2. E.coli UTI 3. Community-acquired pneumonia - 02/15 Blood cultures positive for E. coli, pansensitive, therefore antibiotics changed to Rocephin - CXR: early left base pneumonia - 02/17 Blood cultures : negative (Prelim) Plan: - Received IV Rocephin 2g/day x 3 days - On p.o. Levaquin 750mg qD (02/19 - 02/26) to complete 10 day course - Anticipate DC in 24 hours on p.o. antibiotics 4. Pancreatic head mass 5. Unintentional weight loss - 02/15 CT Abdo : Pancreatic head mass 3.6 x 4.2 cm - 02/17 MRI Abdomen : Large complex septated cystic mass pancreatic head, at least 4 x 4.2 cm Plan: - Tumor markers CA 19?9, CEA, CA125 : pending - Oncology Dr Christensen consulted, look forward to his recommendations 6. T2DM - HbA1c = 6.3% - Blood sugar 140-160 in patient - On Metformin 500mg BID at home Plan: - Started normal insulin sliding scale with Accu-Checks - Hypoglycemia protocol in place - Will prescribe continuous glucose monitor on discharge and GDMT 7. Primary HTN - Continue home lisinopril 10 mg - BP 110-120/70s Health maintenance: Disposition: Med Tele. Pancreatic mass concerning for malignancy, pending Oncology recs. Diet: Cardiac Lines: pIVs GI Prophylaxis: None Thrombo Prophylaxis: Lovenox 40mg SC qD Code status: FULL CODE Plan of care discussed with attending Dr Margie Foley MD, PGY 2 Attending Provider Attestation/Addendum I have discussed and was present for the essential components of the history, physical examination, diagnosis, and treatment plan with the resident. I agree with the patient's care as documented by the resident and amended herein by me. Brijesh Hanson DO. No acute events overnight, vital signs stable, patient afebrile, patient presently on room air, SpO2 94%. Labs largely unremarkable, abdominal MRI 12/14 demonstrates a complex large septated cystic mass in the pancreatic head with subtle enhancement. Blood cultures 02/17 NGTD with previous closed cultures on 02/15 demonstrating pansensitive E. coli in both sets. SIGNIFICANT PROBLEM LIST/PLAN: #E. coli bacteremia possibly secondary to urinary source #Urinary tract infection secondary to E. coli #Pneumonia, left lower lobe #Pancreatic mass -Continue antibiotics however convert to oral ?Oncology, Dr. Christensen consulted, appreciate recommendations Dispo: Likely discharge home in 1 to 2 days pending specialist recommendations. Although this document has been carefully reviewed, there may still be some phonetic and other typographical errors. These errors are purely grammatical due to imperfections in the software program and should not be construed in any way to compromise the substance of the patient's medical care during this visit.
--- NOTE | 2024-02-20 16:01 | PC.SS ---
Rounding: Poss DC 02/20
[2024-02-20] MEDS: ATORVASTATIN CALCIUM 20 MG TABLET PO (20:23)
[2024-02-20] MEDS: INSULIN LISPRO (AdmeLOG) 1 UNIT/0.01 ML UNIT SC (20:55)
[2024-02-21] VITALS (7 sets, daily range): BP systolic 103–130; BP diastolic 73–85; PULSE 68–122; RESP 16–18; TEMP 36.2–36.8; O2SAT 92–97; BMI 26.7
[2024-02-21 03:43] LABS: Carcinoembryonic Antigen < 0.5 ng/mL (0.0-5.0)
[2024-02-21 06:25] LABS: Basophils % (Auto) 1 % (0-2.5); Eosinophils # (Auto) 0.3 Thou/mm3 (0.0-0.5); Eosinophils % (Auto) 4 % (0-10); Hematocrit 36.5 % (36.0-46.0); Hemoglobin 12.3 g/dL (12.0-16.0); Immature Granulocytes % (Auto) 2 % (0-0); Immature Granulocytes Auto 0.11 Thou/mm3 (0.00-0.00); Lymphocytes # (Auto) 2.5 Thou/mm3 (1.0-4.8); Lymphocytes % (Auto) 35 % (10-50); Mean Corpuscular HGB Conc 33.7 g/dl (31.0-37.0); Mean Corpuscular Hemoglobin 29.6 pg (25.0-35.0); Mean Corpuscular Volume 88 fL (80-100); Monocytes # (Auto) 0.5 Thou/mm3 (0.0-0.8); Monocytes % (Auto) 7 % (0-12); Neutrophils # (Auto) 3.6 Thou/mm3 (1.8-7.7); Neutrophils % (Auto) 52 % (37-80); Nucleated Red Blood Cell % 0 /100 WBC (0); Platelet Count 304 Thou/mm3 (140-440); RDW Standard Deviation 38.8 fL (36.4-46.3); Red Blood Count 4.16 Miln/mm3 (4.00-5.20)
[2024-02-21 06:40] LABS: Anion Gap 9 (7-16); BUN/Creatinine Ratio 20 Ratio (12-20); Blood Urea Nitrogen 20 mg/dL (9-23); Calcium 10.4 mg/dL (8.3-10.6); Carbon Dioxide 25.7 mMol/L (20.0-31.0); Chloride 103 mMol/L (98-107); Estimated Creatinine Clearance 54.2 mL/min (>60); Glucose 129 mg/dL (74-106); Osmolality,Calculated 280 (275-295); Potassium 3.6 mMol/L (3.4-5.1); Sodium 138 mMol/L (136-145); eGFR > 60 See Note
--- NOTE | 2024-02-21 08:17 | ESPR_ITS ---
Documentation for date of: 02/21/24 Subjective Subjective Interval history: No acute overnight events. No complaints at this point. Denies fever, chills, headaches, chest pain, sob, cough, GI or urinary symptoms. Exam Vital Signs Temp Pulse Resp BP Pulse Ox O2 Del Method 97.3 F 69 18 115/83 97 Room Air 02/21/24 04:00 02/21/24 04:00 02/21/24 04:00 02/21/24 04:00 02/21/24 04:00 02/21/24 04:00 Narrative Exam Constitutional Alert, oriented x4 and comfortable HEENT Vision grossly intact. Patent nares. Trachea midline. Respiratory Chest normal on inspection and clear to auscultation bilaterally. Cardiovascular S1 and S2 audible, RRR. No murmurs or carotid bruit. No gross JVD. Abdominal Soft, mildly tender to deep palpation in upper quadrants. BS + Genitourinary No bladder tenderness, no flank pain. Normal to palpation. Musculoskeletal Extremities tone within normal limits. No LE edema. Neurological CN II - XII grossly intact. Extremity motor and sensation grossly intact. Skin Warm, dry and intact. No apparent lesions. Psychiatric Patient has a good affect, is cooperative. Objective Labs 02/21/24 04:38 02/21/24 04:38 Labs: Laboratory Results - last 24 hr 02/18/24 02/21/24 21:25 04:38 WBC 7.0 RBC 4.16 Hgb 12.3 Hct 36.5 MCV 88 MCH 29.6 MCHC 33.7 RDW Std Deviation 38.8 Plt Count 304 D Neut % (Auto) 52 Lymph % (Auto) 35 [place] % (Auto) 7 Eos % (Auto) 4 Baso % (Auto) 1 Neut # (Auto) 3.6 Lymph # (Auto) 2.5 [place] # (Auto) 0.5 Eos # (Auto) 0.3 Baso # (Auto) 0.0 Immature Gran # (Auto) 0.11 H Absolute Nucleated RBC 0.00 Immature Gran % 2 H Nucleated RBC % 0 Sodium 138 Potassium 3.6 Chloride 103 Carbon Dioxide 25.7 Anion Gap 9 BUN 20 Creatinine 1.0 Estim Creat Clear Calc 54.2 L eGFR > 60 BUN/Creatinine Ratio 20 Glucose 129 H Calculated Osmolality 280 Calcium 10.4 Carcinoembryonic Ag < 0.5 CA 125 Antigen 12.0 Quality Measures Quality Measures VTE prophylaxis Advance care planning discussed with:: patient Assessment & Plan Assessment Current Active Medications: Generic Name Dose Route Start Last Admin Trade Name Freq PRN Reason Stop Dose Admin Acetaminophen 650 mg 02/18/24 22:52 Acetaminophen 325 Mg Tablet PO 03/19/24 22:51 Q6H PRN Fever >101.5 Atorvastatin Calcium 20 mg 02/19/24 21:00 02/20/24 20:23 Atorvastatin Calcium 20 Mg Tablet PO 03/20/24 20:59 20 mg HS JERE Administration Dextrose 50 ml 02/18/24 22:55 Dextrose 50%-Water Inj 50 Ml Syringe IV 03/19/24 22:54 Q15MIN PRN BG <50 OR BG <70 & pt unresponsive Enoxaparin Sodium 40 mg 02/19/24 09:00 02/20/24 08:34 Enoxaparin Sod Inj 40 Mg/0.4 Ml Syringe SC 03/04/24 08:59 40 mg QDAY JERE Administration Glucagon 1 mg 02/18/24 22:55 Glucagon Inj 1 Mg Vial IM Q15MIN PRN BG <70, and no IV access Insulin Human Lispro 0 unit 02/20/24 21:00 02/21/24 07:47 Insulin Lispro (Admelog) 1 Unit/0.01 Ml Unit SC 03/21/24 20:59 Not Given [facility] Protocol Levofloxacin 500 mg 02/21/24 09:00 Levofloxacin 250 Mg Tablet PO 02/27/24 08:59 QDAY JERE Lisinopril 10 mg 02/21/24 09:00 Lisinopril 2.5 Mg Tablet PO 03/22/24 08:59 QDAY [facility] Plan In summary: 63-year-old female with HTN, T2DM after her blood cultures from ED visit on 02/15 returned positive for GNR, specifically pansensitive E. coli. At that time she was diagnosed with UTI. Incidentally, CT scan revealed a 3.6 x 4.2 cm pancreatic head mass for which an MRI was ordered. Patient was admitted for further workup and management of E. coli bacteremia and pancreatic head mass. GNR bacteremia E.coli UTI Community-acquired pneumonia Currently afebrile, no leukocytosis Continue on CEFTRIAXONE for E. coli UTI 48H blood culture negative 2 out of 2 Patient currently asymptomatic Pancreatic head mass Unintentional weight loss CT abdomen showed 3.6 x 4.2 cm pancreatic head mass. MRI showed 4 x 4.2 complex septated cystic mass of the pancreatic head. CA125 negative, pending CA 19?[address] Christensen following ? IR consulted for possible pancreatic head biopsy ? Pending CA 19?9 and CEA ? Pending MRCP T2DM HbA1c 6.3%, GLUCOSE 140 ? 160 ? Continue INSULIN sliding scale ? Accu-Cheks ? Discharged on GDMT ? Holding home METFORMIN 500 mg BID Primary HTN BP within normal limits ? Continue home lisinopril 10 mg Incidental finding Right renal mass, possible cystic mass Health maintenance Diet: Cardiac GI prophylaxis: Not indicated DVT prophylaxis: HEPARIN Antibiotics: CEFTRIAXONE CODE STATUS: Full code Disposition: Pending graphic studies Patient case was discussed with attending, Peter Mack MD and senior residents Dr. Chase and Dr. Foley. eBlén Diaz DO PGYI Attending Provider Attestation/Addendum I reviewed labs, imaging, EKG, home medications and prior available records. Face to face evaluation was performed by me. I have personally examined the patient and discussed assessment and plan with the IM team. I reviewed the resident note and agree with the plan with exceptions as below. Gram-negative bacteremia Left lower lobe pneumonia Sepsis secondary to pneumonia Pancreatic mass Changed antibiotics to IV ceftriaxone Follow-up repeat blood cultures: Negative Follow-up abdominal MRI: Showed cystic mass that is concerning for neoplasm. Also showed renal mass likely cyst. Ordered MRCP. Tumor markers sent. Consulted oncology Dr. Christensen: May need biopsy.
[2024-02-21] MEDS: LEVOFLOXACIN 250 MG TABLET 500 MG PO (08:43)
[2024-02-21] MEDS: Lisinopril 2.5 MG TABLET 10 MG PO (08:43)
[2024-02-21] MEDS: ENOXAPARIN SOD INJ 40 MG/0.4 ML SYRINGE SC (08:43)
--- NOTE | 2024-02-21 08:48 | PD.ONCCONS ---
HPI Data of Consult Consult date: 02/21/24 Requesting Physician: Louie Hanson DO Primary Care Provider: Marquez Higgins MD Consult Narrative Reason for consult: Pancreatic mass and renal mass History of present illness: 63-year-old lady admitted with pneumonia sepsis UTI noted to have pancreatic and renal mass on CT of 02/16/2024. Abdominal MRI 02/19/2024 revealed large complex septated cystic mass pancreatic head at least 4 x 4.2 cm with postcontrast images demonstrating enhancement. Also lower pole 4.5 cm left renal cyst. Patient receiving supportive care including IV antibiotics and referred for oncological consultation. Patient has had some weight loss but denies abdominal pain or jaundice.AM labs CBC 7.0 WBC hemoglobin 12.3 platelets 304. CMP shows mild elevation of glucose with LFTs basically in the normal range. Tumor markers of CA125 CEA not elevated CA 19?9 pending. Now referred for oncological consultation. cc:: cc: Louie Hanson DO Past Medical History Social History SOCIAL: Greek-speaking denies smoking drinking Past Medical History Comments PMH COMMENT: Diabetes mellitus type 2 Meds Home Medications and Allergies Home Medications ?Medication ?Instructions ?Recorded ?Confirmed ?Type Metformin Hcl 500 mg PO ##0 11/16/08 History lisinopril 10 mg tablet 10 mg PO ##0 11/16/08 History Allergies Allergy/AdvReac Type Severity Reaction Status Date / Time No Known Allergies Allergy Mild Uncoded 02/11/09 14:32 Exam Vital Signs Temp Pulse Resp BP Pulse Ox O2 Del Method 97.3 F 77 18 122/82 97 Room Air 02/21/24 04:00 02/21/24 08:43 02/21/24 04:00 02/21/24 08:43 02/21/24 04:00 02/21/24 04:00 Narrative Exam Comfortably in no acute distress Results Labs 02/21/24 04:38 02/21/24 04:38 Labs: Short CBC 02/21/24 Range/Units 04:38 WBC 7.0 (3.6-11.0) Thou/mm3 Hgb 12.3 (12.0-16.0) g/dL Hct 36.5 (36.0-46.0) % Plt Count 304 D (140-440) Thou/mm3 BMP 02/21/24 04:38 Sodium 138 Potassium 3.6 Chloride 103 Carbon Dioxide 25.7 BUN 20 Creatinine 1.0 Glucose 129 H Calcium 10.4 Assessment and Plan Additional Assessment & Plan Additional Plan: 1. Admitted with E. coli bacteremia sepsis pneumonia left lower lobe. Improving with supportive care. 2. Incidental discovery of pancreatic mass 4 x 4.2 cm with enhancement appearing cystic along with cystic appearing left renal mass. 3. CA 19?9 pending with normal CEA CA125. 4. Took the liberty of ordering MRCP to check the ducts, will see if with the borderline large size of the cystic appearing pancreatic mass that biopsy may be indicated. 5. Will follow. Thank you for allowing me to evaluate this patient.
--- NOTE | 2024-02-21 09:02 | XR_ITS ---
MRI abdomen, without contrast. MRCP Date and time of exam: February 21, 2024 1558 hrs. Indications: Complex septated cystic pancreatic mass 4 x 4.2 cm on MR abdomen pre and postcontrast February 19, 2024 Technique: Multiple axial and coronal images of the abdomen have been obtained with the Siemens 1.5T MRI scanner. Images obtained included T1 weighted transverse images, T2-weighted transverse images, T2-weighted transverse images fat-suppressed, T2 weighted haste fat suppressed transverse images, T1 weighted images, in and out of phase images, T2-weighted coronal images, breath hold, T2 weighted haze coronal images as well as T2 weighted coronal thick slab images, MRCP. Findings: No focal liver lesions 4 x 4.2 cm septated cystic mass head of the pancreas again noted No extrahepatic biliary tract dilatation Pancreatic duct is not dilated No peripancreatic edema Spleen is not enlarged No ascites Lower pole 4.3 cm left renal cyst Impression: 4 x 4.2 cm septated cystic mass head of the pancreas again noted, differential would include cystic pancreatic neoplasm This mass would be amenable to CT-guided fine-needle aspiration for cytologic assessment as clinically warranted
[2024-02-21] MEDS: INSULIN LISPRO (AdmeLOG) 1 UNIT/0.01 ML UNIT SC (18:07)
[2024-02-21] MEDS: ATORVASTATIN CALCIUM 20 MG TABLET PO (21:18)
[2024-02-21] MEDS: HEPARIN SOD INJ 5000 UNIT/ML VIAL SC (21:19)
[2024-02-22] VITALS (10 sets, daily range): BP systolic 105–121; BP diastolic 64–80; PULSE 62–82; RESP 10–17; TEMP 36.4–37.1; O2SAT 94–98
[2024-02-22] MEDS: HEPARIN SOD INJ 5000 UNIT/ML VIAL SC (05:15)
--- NOTE | 2024-02-22 06:46 | XR_ITS ---
Examination: CT-guided percutaneous biopsy mass pancreatic head CT abdomen without intravenous contrast Date and time of procedure: February 22, 2024 1206 hours INDICATIONS: 3.6 x 4.2 cm mass pancreatic head on CT abdomen examination February 16, 2024 Informed consent provided. A timeout was completed verifying correct patient, procedure, site and positioning. Technique: Axial 3 mm sections were obtained for localization of the mass pancreatic head Appropriate area is marked. The patient's site was prepped and draped in sterile fashion Maximal sterile barrier technique utilized, including hand hygiene Local anesthesia was obtained with 1% lidocaine. Low dose protocols were performed. One or more of the following dose reduction techniques were used; automated exposure control, adjustment of the mA and/or KV according to patient size, use of iterative reconstruction technique. Utilizing CT fluoroscopic guidance core biopsies obtained of the pancreatic head mass, single core, access difficult Patient appears in stable condition during this procedure. At completion of the procedure, the patient is in satisfactory condition. Estimated blood loss 0 cc Complete pathology report to follow. Impression: CT-guided percutaneous biopsy mass pancreatic head as above
--- NOTE | 2024-02-22 06:47 | ESPR_ITS ---
Documentation for date of: 02/22/24 Subjective Subjective Interval history: Patient resting comfortably. MRCP shows 4 x 4.2 cm septated cystic mass head of the pancreas. Mass amenable to CT-guided aspiration for cytological assessment. There was no biliary tract dilatation and pancreatic duct not dilated. Exam Vital Signs Temp Pulse Resp BP Pulse Ox O2 Del Method 97.7 F 62 17 106/72 97 Room Air 02/22/24 04:00 02/22/24 04:00 02/22/24 04:00 02/22/24 04:00 02/22/24 04:00 02/22/24 04:00 Narrative Exam Resting comfortably. Objective Labs 02/21/24 04:38 02/21/24 04:38 Assessment & Plan A&P Narrative 1. Admitted with E. coli bacteremia sepsis pneumonia left lower lobe. Improving with supportive care. 2. Incidental discovery of pancreatic mass 4 x 4.2 cm with enhancement appearing cystic along with cystic appearing left renal mass. 3. CA 19?9 pending with normal CEA CA125. 4. MRCP does not show dilated ducts. Nevertheless I took the liberty to order CT FNA aspiration, considering her youth and the consequences overlooking a malignancy in pancreas area. 5. Will follow patient for both the pancreatic mass and renal mass at [facility] upon discharge. Time Spent With Patient Time: Total time spent is greater than 50% in coordination of care (as documented) at patient's floor/unit and/or counseling patient:
[2024-02-22] MEDS: INSULIN LISPRO (AdmeLOG) 1 UNIT/0.01 ML UNIT SC ×2 (07:36→16:45)
--- NOTE | 2024-02-22 08:07 | PD.RESPRO ---
Documentation for date of: 02/22/24 Subjective Subjective Interval history: No acute overnight events. Patient doing well without any complaints. Tolerating all intact without nausea or vomiting. Denies fever, chills, headaches, chest pain, sob, cough, GI or urinary symptoms. Exam Vital Signs Temp Pulse Resp BP Pulse Ox O2 Del Method 98.1 F 62 16 105/64 94 L Room Air 02/22/24 08:00 02/22/24 08:00 02/22/24 08:00 02/22/24 08:00 02/22/24 08:00 02/22/24 08:00 Narrative Exam Constitutional Alert, oriented x4 and comfortable HEENT Vision grossly intact. Patent nares. Trachea midline. Respiratory Chest normal on inspection and clear to auscultation bilaterally. Cardiovascular S1 and S2 audible, RRR. No murmurs or carotid bruit. No gross JVD. Abdominal Soft, mildly tender to deep palpation in upper quadrants. BS + Genitourinary No bladder tenderness, no flank pain. Normal to palpation. Musculoskeletal Extremities tone within normal limits. No LE edema. Neurological CN II - XII grossly intact. Extremity motor and sensation grossly intact. Skin Warm, dry and intact. No apparent lesions. Psychiatric Patient has a good affect, is cooperative. Objective Labs 02/21/24 04:38 02/21/24 04:38 Quality Measures Quality Measures VTE prophylaxis Advance care planning discussed with:: patient Assessment & Plan Assessment Current Active Medications: Generic Name Dose Route Start Last Admin Trade Name Freq PRN Reason Stop Dose Admin Acetaminophen 650 mg 02/18/24 22:52 Acetaminophen 325 Mg Tablet PO 03/19/24 22:51 Q6H PRN Fever >101.5 Atorvastatin Calcium 20 mg 02/19/24 21:00 02/21/24 21:18 Atorvastatin Calcium 20 Mg Tablet PO 03/20/24 20:59 20 mg HS JERE Administration Dextrose 50 ml 02/18/24 22:55 Dextrose 50%-Water Inj 50 Ml Syringe IV 03/19/24 22:54 Q15MIN PRN BG <50 OR BG <70 & pt unresponsive Glucagon 1 mg 02/18/24 22:55 Glucagon Inj 1 Mg Vial IM Q15MIN PRN BG <70, and no IV access Heparin Sodium (Porcine) 5,000 unit 02/21/24 22:00 02/22/24 05:15 Heparin Sod Inj 5000 Unit/Ml Vial SC 03/06/24 21:59 5,000 unit Q8HR JERE Administration Insulin Human Lispro 0 unit 02/20/24 21:00 02/22/24 07:36 Insulin Lispro (Admelog) 1 Unit/0.01 Ml Unit SC 03/21/24 20:59 2 unit ACHS JERE Administration Protocol Levofloxacin 500 mg 02/21/24 09:00 02/21/24 08:43 Levofloxacin 250 Mg Tablet PO 02/27/24 08:59 500 mg QDAY JERE Administration Lisinopril 10 mg 02/21/24 09:00 02/21/24 08:43 Lisinopril 2.5 Mg Tablet PO 03/22/24 08:59 10 mg QDAY JERE Administration Plan In summary: 63-year-old female with HTN, T2DM after her blood cultures from ED visit on 02/15 returned positive for GNR, specifically pansensitive E. coli. At that time she was diagnosed with UTI. Incidentally, CT scan revealed a 3.6 x 4.2 cm pancreatic head mass for which an MRI was ordered. Patient was admitted for further workup and management of E. coli bacteremia and pancreatic head mass, completed pancreatic head biopsy. Pancreatic head mass Unintentional weight loss CT abdomen showed 3.6 x 4.2 cm pancreatic head mass. MRI showed 4 x 4.2 complex septated cystic mass of the pancreatic head. MRCP showed 4 x 4 cm septated cystic mass head of the pancreas. Biopsy completed today. CA125 and CEA negative, pending CA 19?9 Dr. Christensen following. ? Outpatient follow-up with heme-onc, Dr. Christensen E. coli bacteremia (resolved) E.coli UTI Community-acquired pneumonia Currently afebrile, no leukocytosis Continue on LEVOFLOXACIN for E. coli UTI 48H blood culture negative 2 out of 2 Patient currently asymptomatic T2DM HbA1c 6.3%, GLUCOSE 140 ? 160 ? Continue INSULIN sliding scale ? Accu-Cheks ? Discharged on GDMT ? Holding home METFORMIN 500 mg BID Primary HTN BP within normal limits ? Continue home lisinopril 10 mg Incidental finding Right renal mass, possible cystic mass Health maintenance Diet: Cardiac GI prophylaxis: Not indicated DVT prophylaxis: HEPARIN Antibiotics: LEVOFLOXACIN CODE STATUS: Full code Disposition: Pending graphic studies Patient case was discussed with attending, Peter Mack MD and senior residents Dr. Chase and Dr. Foley. Belén Diaz DO PGYI Attending Provider Attestation/Addendum I reviewed labs, imaging, EKG, home medications and prior available records. Face to face evaluation was performed by me. I have personally examined the patient and discussed assessment and plan with the IM team. I reviewed the resident note and agree with the plan with exceptions as below. Gram-negative bacteremia Left lower lobe pneumonia Sepsis secondary to pneumonia Pancreatic mass Will discharge on levofloxacin Follow-up repeat blood cultures: Negative Follow-up abdominal MRI: Showed cystic mass that is concerning for neoplasm. Also showed renal mass likely cyst. Ordered MRCP that confirmed the mass. Tumor markers sent. Consulted oncology Dr. Christensen: Status post IR guided biopsy. Follow-up with the biopsy results as outpatient. Follow-up with oncology as outpatient. Time spent is 40 minutes. More than 50% of the time was spent on patient education and coordination of care.
[2024-02-22 09:13] LABS: INR 1.1 (0.9-1.3); Partial Thromboplastin Time 30.7 Seconds (22.0-36.0); Prothrombin Time 11.6 Seconds (9.0-12.2)
[2024-02-22] MEDS: LEVOFLOXACIN 250 MG TABLET 500 MG PO (09:43)
--- NOTE | 2024-02-22 11:06 | PC.SS ---
rounding note: Pending biopsy . Patient will need a F/u appt with CTC
[2024-02-22] MEDS: SODIUM CHLORIDE 0.9% 250 ML 250 ML 20 ML IV (12:04)
[2024-02-22] MEDS: fentaNYL CIT INJ 50 mCg/ML AMP 2ML 75 MCG IVP (12:20)
--- NOTE | 2024-02-22 14:06 | ESDS_ITS ---
<Statement entered by Famiila Chase MD - 03/02/24 15:55> Patient was seen and examined by me personally. I agree with the discharge plan as discussed with the intern product marketing manager physician, and my attending, Dr. Mack. E. coli Bacteremia & UTI resolved. Complete antibiotics as prescribed. Follow up with oncology outpatient for results of pancreatic head mass biopsy. Return precautions provided. Familia Chase MD, PGY-3 Planned Discharge Date 02/22/24 DS: Providers Provider Date of admission: 02/18/24 22:52 Primary care physician: Marquez Higgins MD Admitting Provider: Jeremiah Velazquez MD Attending Provider on Admission: Peter Mack MD Consults: 02/19/24 13:58 Consult to Oncology Routine Comment: pancreatic mass, concern for malignancy Consulting Provider: Isaias Christensen Attending Provider on DC: Peter Mack MD Discharging Provider: Peter Mack MD DS: Diagnosis Problem List Completed Was Problem List Reviewed/Reconciled?: Yes Hospital Course Hospital Course Hospital course: This is a 63-year-old female with HTN, T2DM admited for E. coli UTI and bacteremia. Patient was treated with a course of ANTIBIOTICS and her symptoms have resolved. Patient was stable at the time of discharge. Blood culture was negative after 48 hours at the time of discharge. Additionally, patient was seen by oncology for a pancreatic head mass seen on CT and will follow up with oncology, Dr. Christensen, after dischargre. PATIENT INSTRUCTIONS: Recommend to follow up with your PCP within 1 week of discharge You will need to follow up with [facility] ([facility]cology[facility] for [facility] results, and for further recommendations Complete levofloxacin 500mg (2 more tablets) as directed: 1 tab per day Continue home meds as prescribed Return to the ED if your symptoms return or worsen ADMISSION DIAGNOSES: Pancreatic head mass Unintentional weight loss E. coli bacteremia (resolved) E.coli UTI Community-acquired pneumonia T2DM Primary HTN Incidental finding: Right renal mass, possible cystic mass Patient case was discussed with attending, Dr. Peter Mack MD, and senior residents Dr. Chase and Dr. Foley. Belén Diaz DO PGYI Time Spent with Patient Time attestation: Total time spent providing and/or coordinating discharge services: greater than 35 minutes. Exam Vital Signs Temp Pulse Resp BP Pulse Ox O2 Del Method O2 Flow Rate 97.6 F 73 13 120/80 95 Room Air 3 02/22/24 12:42 02/22/24 12:42 02/22/24 12:42 02/22/24 12:42 02/22/24 12:42 02/22/24 12:42 02/22/24 12:35 Narrative Exam Constitutional Alert, oriented x4 and comfortable HEENT Vision grossly intact. Patent nares. Trachea midline. Respiratory Chest normal on inspection and clear to auscultation bilaterally. Cardiovascular S1 and S2 audible, RRR. No murmurs or carotid bruit. No gross JVD. Abdominal Soft, minimally tender to deep palpation in upper quadrants. BS + Genitourinary No bladder tenderness, no flank pain. Normal to palpation. Musculoskeletal Extremities tone within normal limits. No LE edema. Neurological CN II - XII grossly intact. Extremity motor and sensation grossly intact. Skin Warm, dry and intact. No apparent lesions. Psychiatric Patient has a good affect, is cooperative. Discharge Plan Plan Patient Disposition: HOME (Self Care) Patient condition on transfer: Stable Care Plan Goals: Se recomienda hacer un seguimiento con cerda m?dico de atenci?n primaria dentro de 1 semana despu?s del destin. Deber? hacer un seguimiento con el Dr. Christensen (oncolog?a) en [facility] para obtener los resultados de la biopsia y obtener m?s recomendaciones. Levofloxacino completo 500 mg (2 tabletas m?s) seg?n las indicaciones: 1 tableta por d?a. Contin?e tomando los medicamentos en el hogar seg?n lo recetado. Regrese a la manan de emergencias si jose a s?ntomas regresan o empeoran. Recommend to follow up with your PCP within 1 week of discharge You will need to follow up with Dr. Christ[facility] (oncology) [facility] for biopsy results, and for further recommendations Complete levofloxacin 500mg (2 more tablets) as directed: 1 tab per day Continue home meds as prescribed Return to the ED if your symptoms return or worsen Prescriptions/Referrals Prescriptions/Med Rec: Continued lisinopril 10 MG tablet 10 mg PO Qty: 0 Metformin Hcl 500 MG tablet 500 mg PO Qty: 0 naproxen 500 mg tablet 500 mg PO BID PRN (Reason: pain) Qty: 30 0RF hydrocodone-acetaminophen 5-325 mg tablet 1 tab PO BID MDD 2 PRN (Reason: pain) Qty: 14 0RF Discontinued cephalexin 500 mg capsule 1,000 mg PO BID 7 Days Qty: 28 0RF Referrals: Marquez Higgins MD [Primary Care Provider] - Isaias Christensen MD [Physician] - Patient/Caregiver Discharge Instructions Discharge Activity: as per physical therapy Education Materials: ED Bacteremia, Suspected (Adult) Print Language: Albanian Stand Alone Forms: [employer] Award Info., Patient Portal Info Letter Discharge Order Discharge Orders: Discharge (Routine); Ordered 02/22/24 Ordered By: Familia Chase Quality Discharge Quality Measures VTE prophylaxis MD Attestestation MD Attestation Face to face interview with the patient was performed and I reviewed the resident note and agree with the findings.
[2024-02-24 06:26] LABS: CA 19-9 Antigen* 27 U/mL (<34)
== END 2024-02-22 18:07 | disposition home or self-care (01) | DRG 689 ==
LOC: SERX 22:47 → SERHOLD 23:23 → S3NX 02-19 00:11
PROVIDERS: Student in an Organized Health Care Education/Training Program; Admitting Provider Internal Medicine; Emergency Provider Emergency Medicine; PCP Family Medicine; Visit Provider Student in an Organized Health Care Education/Training Program
DX: N39.0 Urinary tract infection, site not specified (principal); J18.9 Pneumonia, unspecified organism; R78.81 Bacteremia; I10 Essential (primary) hypertension; E11.9 Type 2 diabetes mellitus without complications; B96.20 Unspecified Escherichia coli [E. coli] as the cause of diseases classified elsewhere; N28.1 Cyst of kidney, acquired; K86.9 Disease of pancreas, unspecified; R63.4 Abnormal weight loss; Z68.26 Body mass index [BMI] 26.0-26.9, adult; Z90.710 Acquired absence of both cervix and uterus; Z79.84 Long term (current) use of oral hypoglycemic drugs; Z79.899 Other long term (current) drug therapy
CPT/HCPCS: 36415; 70450; 71046; 74176; 74183; 80048; 80053; 81001; 82378; 83036; 83605; 83690; 83735; 83880; 84100; 84145; 84484; 85025; 85610; 85730; 86301; 86304; 87040; 87077; 87086; 87186; 93005; 96365; 96366; 99284; 99285; A9579; J0696; J1643; J1650; J1815; J2543; J3010; J7030; J7050; S8037; 74181; A9270; J1644

== ENCOUNTER → 2024-03-06 | Outpatient (CLI) | payer MEDICARE, MEDICAID, SELFPAY ==
--- NOTE | 2024-03-06 14:15 | XR_ITS ---
Examination: Bone densitometry Date and time of exam:March 06, 2024 1416 hours INDICATIONS: Hysterectomy age 48 vitamin D 3 years Technique: Lumbar spine and hip total bone mineralization values of an calculated. Peak reference and age match control results have been displayed. Findings: Lumbar spine total bone mineralization is0.969 gm/cm2. This is 0.7 standard deviations below peak reference. This is 1.1 standard deviations above age-matched controls. Hip total bone mineralization is 0.909 gm/cm2 This is 0.4 standard deviations below peak reference. This is 0.7 standard deviations above age-matched controls Impression: There is normal mineralization based on lumbar spine measurements. There is osteoporosis based on hip measurements
== END | disposition home or self-care (01) ==
LOC: CDIM 13:51
PROVIDERS: Referring Provider Physician Assistant Medical; Visit Provider Physician Assistant Medical
DX: Z13.820 Encounter for screening for osteoporosis (principal); M81.8 Other osteoporosis without current pathological fracture
CPT/HCPCS: 77080

== ENCOUNTER 2024-03-23 09:35 | Outpatient (RCR) | payer MEDICARE, MEDICAID, SELFPAY ==
--- NOTE | 2024-03-23 10:55 | CTCFLWUP_ITS ---
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 Patient was recently admitted for sepsis and discharged a month ago from [facility]. It was noted on radiographs that patient had a pancreatic mass with left renal mass both appearing benign but asked to be followed at the cancer center. Please see inpatient consult of 02/21/2024.e Abdominal MRI 02/19/2024 revealed complex large septated cystic mass 4 x 4.2 cm. There was also lower pole kidney 4.5 cm left renal cyst. 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 Tumor markers CEA CA 19?9 CA125 all were quite low and within normal limits. A#1. Recently admitted for pneumonia sepsis now resolved. A#2. Large septated cystic mass in pancreas biopsy negative. Tumor markers including CA 19?9 low. Cystic-appearing left renal cyst noted as well. A#3. While likely benign at both sites I will repeat abdominal CT scan in 5 months and see patient again in 6 months. Cc: Marquez Higgins MD Electronically signed by: Isaias Christensen M.D. 03/23/2024 10:53 AM
== END 2024-04-07 23:59 | disposition home or self-care (01) ==
LOC: SCTC 09:35
PROVIDERS: PCP Physician Assistant Medical; Referring Provider Family Medicine; Visit Provider Radiology Therapeutic Radiology
DX: D13.6 Benign neoplasm of pancreas (principal); N28.1 Cyst of kidney, acquired
CPT/HCPCS: 99213; G0463

== ENCOUNTER → 2024-08-28 | Outpatient (CLI) | payer MEDICARE, MEDICAID, SELFPAY ==
--- NOTE | 2024-08-28 11:00 | XR_ITS ---
Examination: CT abdomen with intravenous contrast. Coronal 2-D reconstructions. Sagittal 2-D reconstructions. Date and time of exam:August 28, 2024 1129 hours INDICATIONS: 4 x 4.2 cm septated cystic mass head of the pancreas on MRCP February 21, 2024 biopsied February 22, 2024 CTDI: vol (mGy): 10.5 DLP: (mGycm): 360 Technique: Axial images of the abdomen have been obtained, 3 mm slice thickness, 60 cc [id number] 2-D sagittal coronal reconstructions Low dose protocols were performed. One or more of the following dose reduction techniques were used; automated exposure control, adjustment of the mA and/or KV according to patient size, use of iterative reconstruction technique. Findings: 10 mm nodule with peripheral nodular enhancement right lobe of the liver consistent with hemangioma Contracted gallbladder Stable septated partially cystic mass in the pancreas No dilated pancreatic duct Aorta normal size No adrenal mass No ascites IMPRESSION: Stable septated partially cystic mass pancreatic head
== END | disposition home or self-care (01) ==
PROVIDERS: PCP Physician Assistant Medical; Referring Provider Radiology Therapeutic Radiology; Visit Provider Radiology Therapeutic Radiology
DX: D13.6 Benign neoplasm of pancreas (principal)
CPT/HCPCS: 74160; A4649; Q9967

== ENCOUNTER 2024-09-20 09:55 | Outpatient (RCR) | payer MEDICARE, MEDICAID, SELFPAY ==
--- NOTE | 2024-09-20 10:53 | CTCFLWUP_ITS ---
[facility] 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 Patient was admitted for sepsis and discharged in February 2024. Abdominal MRI 02/19/2024 complex septated cystic mass pancreatic head with septal enhancement. MRCP 02/21/2024 4 x 4.2 cm cystic mass. Also lower pole 4.3 cm left renal cyst. Biopsy 02/22/2024 serous cystoadenoma. Markers CEA CA 19?9 and CA125 are all within normal limits. Repeat CT abdomen with and without contrast 08/28/2024 stable septated partially cystic mass pancreatic head. Saw patient today who appeared well with no complaints of abdominal otherwise and states that she has not seen a doctor for any major condition in recent months. Told her about the algorithm noted in up-to-date 2024. In the absence of symptoms no additional evaluation or surveillance is required. Assessment. 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 Discussion. Told patient to see primary care provider as well as the need to get new imaging studies of abdomen for any significant abdominal symptoms that may develop. Cc: [facility] Electronically signed by: Isaias Christensen M.D. 09/20/2024 10:51 AM
== END 2024-10-05 23:59 | disposition home or self-care (01) ==
LOC: SCTC 09:55
PROVIDERS: PCP Physician Assistant Medical; Referring Provider Physician Assistant Medical; Visit Provider Radiology Therapeutic Radiology
DX: D13.6 Benign neoplasm of pancreas (principal)
CPT/HCPCS: 99212; G0463

== ENCOUNTER → 2024-12-21 | Outpatient (CLI) | payer MEDICARE, MEDICAID, SELFPAY ==
--- NOTE | 2024-12-21 17:00 | XR_ITS ---
Examination: CT abdomen and pelvis without contrast. Coronal 3-D reconstructions. Sagittal 2-D reconstructions. Date and time of exam: December 21, 2024 1704 hours, comparison August 28, 2024 INDICATIONS: Abdominal pain and swelling up pelvic swelling, left pelvic pain CTDI: vol (mGy): 8.98 DLP: (mGycm): 527 Technique: Axial images of the abdomen have been obtained, 3 mm slice thickness Intravenous contrast material has not been administered. Low dose protocols were performed. One or more of the following dose reduction techniques were used; automated exposure control, adjustment of the mA and/or KV according to patient size, use of iterative reconstruction technique. Findings: 18 mm anterior liver lesion No gallstones Spleen not enlarged No pancreatic or adrenal mass Lower pole renal cyst No hydronephrosis Aorta normal size Normal appendix 4.4 cm fat-containing umbilical hernia Infraumbilical fat-containing hernia 17 mm No bladder mass Absent uterus Chronic severe compression L1 IMPRESSION: 18 mm solid liver lesion Recommend MRI abdomen liver follow-up repeat pre and postcontrast 4.4 cm fat-containing umbilical hernia 17 mm infraumbilical hernia
== END | disposition home or self-care (01) ==
PROVIDERS: Referring Provider Physician Assistant Medical; Visit Provider Physician Assistant Medical
DX: K42.9 Umbilical hernia without obstruction or gangrene (principal)
CPT/HCPCS: 74176